=== PATIENT | female | born 1940 | race Caucasian/White ===

== ENCOUNTER 2020-01-16 15:48 | Emergency (ER) | payer MEDICARE, OTHER, SELFPAY ==
[2020-01-16 15:50] VITALS: BP 155/106; PULSE 63; RESP 17; TEMP 36.4; O2SAT 95; BMI 31.5
--- NOTE | 2020-01-16 16:24 | CT_ITS ---
STUDY: CT BRAIN WITHOUT CONTRAST REASON FOR EXAM: Female, 79 years old. BROWNING SINCE 5AM. FELT WEIRD POP IN HER HEAD WHEN IT STARTED RADIATION DOSAGE (If Supplied By Facility): CTDIvol = ( 44.99 ) mGy, DLP = ( 796.11 ) mGycm TECHNIQUE: Transaxial CT imaging of the brain was performed without administration of intravenous contrast material. Individualized dose optimization techniques were used for this CT. COMPARISON: No relevant priors. FINDINGS: Normal soft tissue structures. Normal calvarium. Mild atrophy and advanced periventricular white matter ischemic changes.. Normal basal ganglia and thalami. Normal brainstem. Normal cerebellum. There are linear areas of increased attenuation in the frontal lobes bilaterally possibly calcification and less likely hemorrhage.. There are no findings of an acute ischemic infarction. Normal visualized paranasal sinuses. CT/Brain/Head without Contrast IMPRESSION: Atrophy and advanced periventricular white matter ischemic changes. No evidence for acute bleed. Subtle linear areas of increased attenuation in the frontal lobes possibly calcification rather than hemorrhagic. MRI would be helpful for further evaluation Electronically Signed: Hadley Wayne MD at 17:09 EDT , Service support ,
--- NOTE | 2020-01-16 16:38 | ED.DCSUM_ITS ---
History of Present Illness Chief Complaint: Headache Informant: Patient, Family Narrative: Patient is a 79-year-old female with a history of hyperlipidemia who presents to the emergency department for headache. It started earlier this morning. She states that it came on like an explosion in her head. The pain was on the temporal aspect bilaterally but stated it felt very deep. She denies history of headaches before in the past. She states that coughing does seem to make the headache slightly worse. Lying down flat does not aggravate it. She states it was a very strange sensation that she is having a hard time describing. The headache has been progressively getting better since then. She currently rates it as a 1 out of 10. She has not taken anything for this. She denies any photophobia, neck stiffness. Denies any fevers or chills. No chest pain or shortness of breath. She is not on any anticoagulation or aspirin. She denies any recent head trauma. She denies any weakness or loss of sensation in any extremity. No issues with word finding or vision changes. No known history of aneurysms before in the past. Past Medical History - Allergies and Home Meds Allergies/Adverse Reactions: Allergies No Known Allergies Allergy (Verified 01/16/20 15:52) Primary Care Physician: [facility] Doctor,Out of [NON-STAFF] - 2 Days Prior records reviewed: Yes Past Medical History: - - Hyperlipidemia, palpitations Review of Systems All systems negative except as indicated General: Denies: Chills, Fever, Sweats Eyes: Denies: Visual changes - bilaterally, Diplopia ENT: Denies: Bilateral ear pain, Rhinorrhea, Sore throat Cardiovascular: Denies: Chest pain, Palpitations Respiratory: Denies: Dyspnea, Cough, Dyspnea on exertion Gastrointestinal: Denies: Abdominal pain, Nausea, Vomiting Genitourinary: Denies: Dysuria Musculoskeletal: Denies: Neck pain, Back pain, Extremity Pain Skin: Denies: Rash, Wounds Neurological: Reports: Headache. Denies: Weakness, Parasthesia, Numbness Hematologic: Denies: Easy bruising, Easy bleeding Physical Exam Vital Signs/Narrative: Vital Signs Temp Pulse Resp BP Pulse Ox 01/16/20 15:50 97.5 F L 63 17 155/106 H 95 General: Well nourished, Well developed, No Acute Distress Head: Normocephalic, Atraumatic Eyes: Perrl, EOMI ENT: Moist mucous membranes, No rhinorrhea, TM's clear Neck: Supple, Nontender Cardiovascular: Regular rate, Regular rhythm, No murmurs Respiratory: No distress, CTA bilaterally, Chest nontender Abdomen: Soft, Nontender, Nondistended Back: Nontender, Normal Inspection Extremities: Nontender, No edema Skin: Normal color, No rash Neurological: Alert, Oriented x3, Cranial nerves II-XII grossly intact, Normal Strength, Normal Sensation, - - No focal neurological deficits Psychological: Normal affect, Normal Mood Diagnostic/Tx/Re-eval - Medical Decision Making Patient presents to the emergency department for worse at onset. She describes it as an explosion. I do have significant concern for subarachnoid hemorrhage although she is very nontoxic appearing and has a very minimal headache now. Will do CT scan of the head. Patient has been asymptomatic throughout ED stay. CT scan did not show any obvious hemorrhage but there was some attenuation concerning for calcification versus a hemorrhage and MRI was recommended. We did get MRI with MRA. This did not show any acute bleed or aneurysm. There is some chronic ischemic changes. There is also a microadenoma found incidentally. This was all made apparent to the patient. At this time patient does feel comfortable going home. We will have her follow-up with her PCP. If she develops any worsening headache she can return to the emergency department for further evaluation. She understands and is agreeable this plan. Will discharge home in stable condition. ED Disposition - Plan for ED Patient: Disposition: Home or Assisted Living Diagnosis: Headache Instructions: ED Headache Unspecified Referrals: [facility] Doctor,Out of [NON-STAFF] - 2 Days
[2020-01-16 17:13] LABS: Absolute Lymphocyte Count 1.58 X10^3/uL (0.83-4.51); Absolute Neutrophil Count 2.3 X10^3/uL (2.0-7.7); Basophil# 0.03 X10^3/uL; Basophil% 0.6 % (0-1); Eosinophil# 0.08 X10^3/uL; Eosinophils% 1.7 % (0-5); Hematocrit 40.2 % (37-47); Hemoglobin 12.5 g/dL (12.0-15.0); Lymphocyte # 1.58 X10^3/ul (4.0); Mean Corp Hgb Conc 31.1 g/dL (32-36); Mean Corpuscular Hgb 29.1 pg (27.0-32.0); Mean Corpuscular Volume 93.7 fL (81-99); Mean Platelet Vol. 11.2 fl (6.2-12.0); Monocyte# 0.68 X10^3/uL; Monocyte% 14.6 % (0-10); NRBC Flagged by Analyzer 0 % (0-5); Neutrophil # 2.27 X10^3/uL (2.7-7.7); Neutrophil % 48.9 % (47-70); Platelet Count 198 K/mm3 (150-450); RBC Distribution Width CV 13.4 % (11.6-14.6); RBC Distribution Width SD 45.8 fl (35.1-43.9); Red Blood Count 4.29 M/mm3 (4.2-5.4); White Blood Count 4.7 K/mm3 (4.4-11.0)
[2020-01-16 17:21] LABS: Anion Gap 3 (5-15); BUN 18 mg/dL (7-18); BUN/Creat Ratio 20.9 RATIO (10-20); Chloride 108 mmol/L (98-107); Creatinine, Serum 0.86 mg/dL (0.55-1.02); EST Glomerular Filtration Rate 68 mL/min (>60); Est Glom Filt Rate - Afr Amer 82 mL/min (>60); Estimated Creatinine Clearance 53.27 ml/min; Glucose 87 mg/dL (74-106); Potassium 4.4 mmol/L (3.5-5.1); Sodium Level 141 mmol/L (136-145)
--- NOTE | 2020-01-16 17:27 | MRI_ITS ---
STUDY: MRI BRAIN WITH AND WITHOUT CONTRAST REASON FOR EXAM: Female, [address], eval for aneurysm/bleed, sudden singleton, felt and quot;explosion in head and quot; this am, pain improving TECHNIQUE: Standardized multiplanar fat and water weighted pulse sequences were obtained. dotarem 18ml iv was administered for the contrast portion of the examination. COMPARISON: CT of the brain 01/16/2020. FINDINGS: Normal size of the ventricles and extra-axial spaces for the patient''s age. Advanced periventricular white matter ischemic changes without mass effect or restricted diffusion. Chronic ischemic changes within the pa. Normal bilateral basal ganglia. Normal thalami. There is no extra-axial fluid accumulation. Normal flow voids within the major intracranial circulation suggesting patency by spin echo criteria. Normal venous enhancement. There is no enhancing intra-axial or extra-axial abnormality. There appears to be a very small nonenhancing nodule in the pituitary measuring 3.3 x 3.5 mm consistent with microadenoma. Normal, infundibular stalk, optic chiasm and hypothalamus. Normal tectal plate and pineal gland. Normal midbrain, and medulla. Normal cerebellum. Normal basal cisterns. Normal bilateral temporal bones. Normal bilateral internal auditory canals. No demonstrated orbital abnormality, within the constraints of a routine brain study. There is minor mucosal thickening of the ethmoid air cells.. Normal calvarium and skull base. Normal visualized soft tissue structures. Normal visualized upper cervical spine. The density identified on recent CT scan is likely artifactual MRI/Brain W/WO Contrast IMPRESSION: Advanced periventricular white matter ischemic changes without evidence for acute infarct. 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 chronic ischemic changes in the pa No evidence for hemorrhage or aneurysm Electronically Signed: Hadley Wayne MD at 19:58 EDT , Service support ,
--- NOTE | 2020-01-16 17:38 | MRI_ITS ---
STUDY: MRA OF THE HEAD WITHOUT CONTRAST REASON FOR EXAM: Female, [address], eval for aneurysm/bleed, sudden singleton, felt and amp;quot;explosion in head and amp;quot; this am, pain improving TECHNIQUE: 3-D [id number] (TOF) imaging was performed with MIPs. The study was performed unenhanced. COMPARISON: None. FINDINGS: Normal bilateral petrous carotid arteries. Normal right cavernous carotid artery with a normal supraclinoid bifurcation. Normal left cavernous carotid artery with a normal supraclinoid bifurcation. Normal right A1 segments of the anterior cerebral artery. Normal left A1 segments of the anterior cerebral artery. Normal intact anterior communicating artery (ACOM). Normal bilateral A2 segments of the anterior cerebral arteries. Normal right M1 and M2 segments of the middle cerebral arteries, with a normal M1 bifurcation. Normal left M1 and M2 segments of the middle cerebral arteries, with a normal M1 bifurcation. Posterior communicating arteries not visualized consistent with normal variant. Normal bilateral vertebral arteries. Normal basilar artery with a normal basilar bifurcation. The visualized bilateral superior cerebellar (SCA) arteries are normal. Normal bilateral P1, P2 and visualized P3 segments of the posterior cerebral arteries. There is no demonstrated aneurysm of the [place]. There is no major vessel occlusion or hemodynamically significant stenosis. There is no demonstrated abnormality of the visualized brain. MRI/MRA Head ONLY without Contrast IMPRESSION: Normal MRA of the head Electronically Signed: Hadley Wayne MD at 19:58 EDT , Service support ,
[2020-01-16 21:10] VITALS: RESP 14
== END 2020-01-16 21:11 | disposition home or self-care (01) ==
PROVIDERS: Emergency Provider Emergency Medicine
DX: R51 Headache (principal); E78.5 Hyperlipidemia, unspecified
CPT/HCPCS: 70450; 70544; 70553; 80048; 85025; 99282; A9575; A4216